=== PATIENT | male | born 1985 | race American Indian/Alaskan Native ===

== ENCOUNTER 2025-05-20 17:16 | Emergency (ER) | payer BC ==
[~2025-05-20 17:16] MED LIST: Iopamidol 612 MG/ML 100 ML Bottle IVPUSH ONE
[2025-05-20 17:30] LABS: PLATELET COUNT,PLT 203 10^3/uL (150-450); RED BLOOD CELL COUNT 4.47 10^6/uL (4.6-6.2); WHITE BLOOD CELL COUNT,WBC 7.8 10^3/uL (5.0-10.0)
[2025-05-20] MEDS: Iopamidol 755 Mg/ML 100 ML Bottle IVPUSH ONE (17:30)
[2025-05-20 17:31] LABS: NEUTROPHILS PERCENT AUTO 66.5 % (42.2-75.2)
[2025-05-20 17:32] LABS: BASOPHILS PERCENT AUTO 0.3 % (0.0-1.0); EOSINOPHILS PERCENT AUTO 0.8 % (1.0-3.0); LYMPHOCYTES PERCENT AUTO 25.5 % (20.5-50.1); MONOCYTES PERCENT AUTO 6.9 % (2-8)
[2025-05-20 17:50] LABS: INR 1.0 (0.9-1.2); PTT,PARTIAL THROMBOPLSTIN TIME 21.2 SEC (22.0-34.0)
[2025-05-20 17:52] LABS: A/G RATIO 1.6; ALANINE AMINOTRANSFERASE,ALT 82 U/L (16-63); ASPARTATE AMNIOTRANSFERASE,AST 61 U/L (15-37); BILIRUBIN TOTAL 0.5 mg/dL (0.2-1.0); BLOOD UREA NITROGEN,BUN 15 mg/dL (7-18); CARBON DIOXIDE,CO2 28 mmol/L (21-32); CHLORIDE,CL 104 mmol/L (98-107); CREATININE 1.14 mg/dL (0.70-1.30); ESTIMATED GFR 85 mL/min (>=60); GLUCOSE RANDOM 86 mg/dL (70-99); POTASSIUM,K 4.4 mmol/L (3.5-5.1); PROTEIN TOTAL,TP 7.0 g/dL (6.4-8.2); SODIUM,NA 141 mmol/L (136-145)
[2025-05-20 17:57] LABS: BAND PERCENT MAN 2 %; LYMPHOCYTES PERCENT MAN 25 % (20-50); MONOCYTES PERCENT MAN 6 % (2-8); SEG NEUTROPHILS PERCENT MAN 67 % (42-75)
[2025-05-20] MEDS: Ketamine 500 mg/10 ML MDV IV ONE ×2 (18:14→18:38)
[2025-05-20] MEDS: Ondansetron 4 MG/2 ML SDV IVPUSH ONE (19:01)
[2025-05-20] MEDS: fentaNYL 250 MCG/5 ML SDV ONE (19:20)
[2025-05-21 00:52] VITALS: BP 153/89; PULSE 93
== END 2025-05-20 19:23 ==
LOC: DL.ED 17:16
DX: S22.41XA Multiple fractures of ribs, right side, initial encounter for closed fracture (principal); S27.0XXA Traumatic pneumothorax, initial encounter; Z88.0 Allergy status to penicillin; Z79.899 Other long term (current) drug therapy; W13.2XXA Fall from, out of or through roof, initial encounter
CPT/HCPCS: 32551; 36415; 70450; 71045; 71260; 72125; 73030; 74177; 80053; 84484; 85025; 85610; 85730; 96374; 96375; 99152; 99153; 99285; J1171; J2003; J2405; J3010; J3490; Q9967